=== PATIENT | female | born 1960 | race Asian ===

== ENCOUNTER 2018-09-19 07:42 | Outpatient (CLI) | payer BC ==
--- NOTE | 2018-09-19 08:18 | BD ---
DEXA BONE DENSITY STUDY: Date: 09/19/18 HISTORY: Postmenopausal. FINDINGS: Lumbar Spine: BMD (g/cm2) L1 0.699 T-Score: -2.6 L2 0.853 T-Score: -1.6 L3 0.777 T-Score: -2.8 L4 0.816 T-Score: -2.2 Total 0.788 T-Score: -2.4 Left Femoral Neck: 0.765 T-Score: -0.8 Total Femur: 1.003 T-Score: +0.5 IMPRESSION: 1. Normal bone mineral density of the left femoral neck. 2. Osteopenia of lumbar spine. Of note, the T-score values of L1 and L3 fall within an osteoporosis range. POS: CHAR
== END 2018-09-19 07:43 | disposition home or self-care (01) ==
LOC: BICMAMMO 07:42
PROVIDERS: ATTEND Obstetrics & Gynecology
DX: Z13.820 Encounter for screening for osteoporosis (principal); M81.0 Age-related osteoporosis without current pathological fracture
CPT/HCPCS: 77080